=== PATIENT | female | born 1940 | race Hispanic/Latino ===

== ENCOUNTER 2023-12-15 19:00 | Emergency (ER) | payer BC, MEDICARE | END 2023-12-15 20:16 | disposition home or self-care (01) | LOC: CSHERS 19:00 | DX: M54.50 Low back pain, unspecified (principal); E78.00 Pure hypercholesterolemia, unspecified; I10 Essential (primary) hypertension; Z79.899 Other long term (current) drug therapy | CPT/HCPCS: 99283 ==